=== PATIENT | female | born 1965 | race Hispanic/Latino ===

== ENCOUNTER 2022-06-20 04:32 | Inpatient (IN) | payer OTHER, SELFPAY ==
[2022-06-20] MEDS ORDERED: TETANUS, DIPHTHERIA TOX,ADULT (TDVAX) 0.5 ML VIAL IM ONE (05:09)
[2022-06-20] MEDS ORDERED: Ondansetron PF 4 MG/2 ML Vial IVP PRN (05:09)
[2022-06-20] MEDS ORDERED: Sodium Chloride 0.9% 1,000 ML IV SCH (05:15)
[2022-06-20 05:22] VITALS: BMI 44.0
[2022-06-20] MEDS: Acetaminophen 500 MG TAB PO SCH ×3 (05:59→18:03)
[2022-06-20] MEDS: traMADol HCl 50 MG TAB PO SCH ×3 (06:00→18:03)
[2022-06-20 06:01] LABS: #Monocytes 0.3 thou/uL (0.11-0.59); %Basophils 0.1 % (0.0-1.0); %Eosinophils 0.2 % (0.0-10.0); %Neutrophils 83.7 % (42.0-75.0); Hemoglobin 11.4 g/dL (12.0-16.0); Mean Corpuscular HGB CONC 32.3 g/dL (32.0-36.0); Mean Corpuscular Hemoglobin 29.3 pg (27.0-31.0); Mean Corpuscular Volume 90.6 fl (78.0-98.0); Mean Platelet Volume 7.5 fL (7.4-10.4); Platelet Count 201 10x3/uL (130-400); RBC Distribution Width 12.2 % (11.5-14.5); White Blood Cell (WBC) Count 8.3 10x3/uL (4.8-10.8)
[2022-06-20 06:23] LABS: Anion Gap 13 mmol/L (10-20); BUN (Urea Nitrogen) 22 mg/dL (9.8-20.1); Calc. Creatinine Clearance 140 mL/min (70-130); Calcium 9.1 mg/dL (7.8-10.44); Carbon Dioxide 21 mmol/L (22-29); Chloride 104 mmol/L (98-107); Estimated GFR 85; Glucose 132 mg/dL (70-105); Magnesium 2.1 mg/dL (1.6-2.6); Phosphorus 3.8 mg/dL (2.3-4.7); Potassium 3.9 mmol/L (3.5-5.1); Sodium 134 mmol/L (136-145)
[2022-06-20] MEDS: Senokot S 8.6-50 MG TAB PO SCH ×2 (08:55→21:18)
[2022-06-20] MEDS: Famotidine 20 MG TAB PO SCH ×2 (08:55→21:18)
[2022-06-20] MEDS: Polyethylene Glycol 3350 17 GM Packet PO SCH (08:56)
[2022-06-20] MEDS: traMADol HCl 50 MG TAB PO PRN ×2 (09:00→21:19)
[2022-06-20] MEDS ORDERED: PARoxetine CR 12.5 MG TAB PO SCH (09:15)
[2022-06-20] MEDS ORDERED: Levothyroxine Sodium 75 MCG TAB PO SCH (09:15)
[2022-06-20] MEDS: Bupropion 150 MG XL TAB PO SCH (09:55)
[2022-06-20] MEDS: Cyclobenzaprine 10 MG TAB PO PRN (14:45)
[2022-06-20] MEDS: Rosuvastatin 20 MG TAB PO SCH (21:18)
[2022-06-20] MEDS: Ziprasidone 60 MG CAP PO SCH (21:19)
[2022-06-20] MEDS: Sodium Chloride 0.9% 1,000 ML IV SCH (23:00)
[2022-06-21] MEDS: traMADol HCl 50 MG TAB PO SCH ×5 (00:46→23:39)
[2022-06-21] MEDS: Acetaminophen 500 MG TAB PO SCH ×5 (00:46→23:40)
[2022-06-21] MEDS: Sodium Chloride 0.9% 1,000 ML IV SCH ×2 (03:00→14:10)
[2022-06-21] MEDS: Levothyroxine Sodium 75 MCG TAB PO SCH (05:20)
[2022-06-21 06:07] LABS: #Eosinphils 0.1 thou/uL (0.0-0.7); #Lymphocytes 1.6 thou/uL (1.20-3.40); #Monocytes 0.3 thou/uL (0.11-0.59); #Neutrophils 2.5 thou/uL (1.40-6.50); %Basophils 0.1 % (0.0-1.0); %Eosinophils 2.6 % (0.0-10.0); %Lymphocytes 34.7 % (21.0-51.0); %Monocytes 6.8 % (0.0-10.0); %Neutrophils 55.8 % (42.0-75.0); Hemoglobin 10.4 g/dL (12.0-16.0); Mean Corpuscular HGB CONC 32.2 g/dL (32.0-36.0); Mean Platelet Volume 7.4 fL (7.4-10.4); Platelet Count 171 10x3/uL (130-400); RBC Distribution Width 12.3 % (11.5-14.5); Red Blood Cell (RBC) Count 3.45 mill/uL (4.20-5.40); White Blood Cell (WBC) Count 4.5 10x3/uL (4.8-10.8)
[2022-06-21 06:14] LABS: INR-International Normal Ratio 1.1; PTT 35.7 sec (22.9-36.1); Prothrombin Time 14.6 sec (12.0-14.7)
[2022-06-21 06:24] LABS: Anion Gap 10 mmol/L (10-20); BUN (Urea Nitrogen) 20 mg/dL (9.8-20.1); Calc. Creatinine Clearance 145 mL/min (70-130); Calcium 8.4 mg/dL (7.8-10.44); Carbon Dioxide 23 mmol/L (22-29); Chloride 108 mmol/L (98-107); Estimated GFR 89; Glucose 102 mg/dL (70-105); Sodium 137 mmol/L (136-145)
[2022-06-21] MEDS: Bupropion 150 MG XL TAB PO SCH (08:55)
[2022-06-21] MEDS: Cyclobenzaprine 10 MG TAB PO PRN ×2 (08:55→18:16)
[2022-06-21] MEDS: PARoxetine 20 MG TAB PO SCH (08:56)
[2022-06-21] MEDS: Senokot S 8.6-50 MG TAB PO SCH ×2 (08:56→20:24)
[2022-06-21] MEDS: Famotidine 20 MG TAB PO SCH ×2 (08:56→20:23)
[2022-06-21] MEDS: Polyethylene Glycol 3350 17 GM Packet PO SCH (08:59)
[2022-06-21] MEDS ORDERED: PARoxetine CR 12.5 MG TAB PO SCH (09:00)
[2022-06-21] MEDS ORDERED: Clindamycin/D5W 900 mg/50 ml Premix Bag ONE (10:26)
[2022-06-21] MEDS ORDERED: fentaNYL PF 100 MCG/2 ML SYRINGE ONE (11:19)
[2022-06-21] MEDS ORDERED: SUGAMMADEX SODIUM 200 MG/2 ML VIAL ONE (11:19)
[2022-06-21] MEDS ORDERED: PROPOFOL 200 MG/20 ML VIAL ONE (11:39)
[2022-06-21] MEDS ORDERED: Ondansetron PF 4 MG/2 ML Vial ONE (11:39)
[2022-06-21] MEDS ORDERED: Promethazine HCl 25 MG/ML VIAL IVPB PRN (12:41)
[2022-06-21] MEDS ORDERED: Promethazine HCl 25 MG/ML VIAL IM PRN (12:41)
[2022-06-21] MEDS ORDERED: Ondansetron HCl/PF 4 MG/2 ML Vial IVP PRN (12:41)
[2022-06-21] MEDS ORDERED: TETANUS, DIPHTHERIA TOX,ADULT (TDVAX) 0.5 ML VIAL IM ONE (13:01)
[2022-06-21] MEDS ORDERED: Morphine 4 MG/ML VIAL SLOW IVP PRN (13:01)
[2022-06-21] MEDS ORDERED: HYDROcodone/Acetaminophen 10/325 mg Tablet PO PRN ×2 (13:01)
[2022-06-21] MEDS ORDERED: FENTANYL 50 MCG/ML 1 ML VIAL ONE ×2 (13:05→13:23)
[2022-06-21] MEDS ORDERED: Communication Order-Pharmacy FS PRN (13:15)
[2022-06-21] MEDS: Clindamycin/D5W 900 MG in Premix Bag 1 BAG IVPB SCH ×2 (14:08→23:39)
[2022-06-21] MEDS: Morphine 4 MG/ML VIAL SLOW IVP PRN ×3 (14:09→20:22)
[2022-06-21] MEDS: Ziprasidone 60 MG CAP PO SCH (20:23)
[2022-06-21] MEDS: Aspirin 81 mg Enteric Coated Tablet PO SCH (20:23)
[2022-06-21] MEDS: traMADol HCl 50 MG TAB PO PRN (20:24)
[2022-06-21] MEDS: Rosuvastatin 20 MG TAB PO SCH (20:24)
[2022-06-22] MEDS: Levothyroxine Sodium 75 MCG TAB PO SCH (05:17)
[2022-06-22] MEDS: traMADol HCl 50 MG TAB PO SCH ×5 (05:19→23:38)
[2022-06-22] MEDS: Acetaminophen 500 MG TAB PO SCH (05:19)
[2022-06-22 06:21] LABS: #Eosinphils 0.1 thou/uL (0.0-0.7); #Lymphocytes 1.4 thou/uL (1.20-3.40); #Monocytes 0.4 thou/uL (0.11-0.59); #Neutrophils 2.8 thou/uL (1.40-6.50); %Basophils 0.3 % (0.0-1.0); %Eosinophils 1.3 % (0.0-10.0); %Monocytes 8.8 % (0.0-10.0); %Neutrophils 60.6 % (42.0-75.0); Hemoglobin 9.1 g/dL (12.0-16.0); Mean Corpuscular HGB CONC 32.1 g/dL (32.0-36.0); Mean Corpuscular Volume 93.4 fl (78.0-98.0); Mean Platelet Volume 7.3 fL (7.4-10.4); Platelet Count 166 10x3/uL (130-400); RBC Distribution Width 12.2 % (11.5-14.5); Red Blood Cell (RBC) Count 3.02 mill/uL (4.20-5.40); White Blood Cell (WBC) Count 4.7 10x3/uL (4.8-10.8)
[2022-06-22 06:51] LABS: Anion Gap 12 mmol/L (10-20); BUN (Urea Nitrogen) 11 mg/dL (9.8-20.1); Calc. Creatinine Clearance 157 mL/min (70-130); Calcium 7.6 mg/dL (7.8-10.44); Carbon Dioxide 22 mmol/L (22-29); Chloride 105 mmol/L (98-107); Estimated GFR 98; Glucose 109 mg/dL (70-105); Magnesium 1.7 mg/dL (1.6-2.6); Phosphorus 2.8 mg/dL (2.3-4.7); Sodium 135 mmol/L (136-145)
[2022-06-22] MEDS: PARoxetine 20 MG TAB PO SCH (09:34)
[2022-06-22] MEDS: Aspirin 81 mg Enteric Coated Tablet PO SCH (09:34)
[2022-06-22] MEDS: Bupropion 150 MG XL TAB PO SCH (09:35)
[2022-06-22] MEDS: traMADol HCl 50 MG TAB PO PRN (09:35)
[2022-06-22] MEDS: Famotidine 20 MG TAB PO SCH ×2 (09:35→20:44)
[2022-06-22] MEDS: Senokot S 8.6-50 MG TAB PO SCH ×2 (09:35→20:44)
[2022-06-22] MEDS: Polyethylene Glycol 3350 17 GM Packet PO SCH (09:36)
[2022-06-22] MEDS ORDERED: Morphine 2 MG/ML VIAL SLOW IVP PRN (10:45)
[2022-06-22] MEDS ORDERED: traMADol HCl 50 MG TAB PO PRN (10:45)
[2022-06-22] MEDS ORDERED: Enoxaparin Sodium 30 MG/0.3 ML SYRINGE SC SCH (11:00)
[2022-06-22] MEDS ORDERED: Morphine 4 MG/ML VIAL SLOW IVP PRN (11:15)
[2022-06-22] MEDS: Acetaminophen/Codeine 30-300mg Tablet PO SCH ×3 (11:17→23:39)
[2022-06-22] MEDS: Ibuprofen 200 MG TAB PO SCH ×2 (13:38→19:05)
[2022-06-22] MEDS: Magnesium 2 GM/50 ML(in water) 2 GM in Premix Bag 1 BAG IVPB SCH ×2 (14:00→17:28)
[2022-06-22] MEDS: Ziprasidone 60 MG CAP PO SCH (20:44)
[2022-06-22] MEDS: Cyclobenzaprine 10 MG TAB PO PRN (20:44)
[2022-06-22] MEDS: Rosuvastatin 20 MG TAB PO SCH (20:44)
[2022-06-22] MEDS: Enoxaparin Sodium 30 MG/0.3 ML SYRINGE SC SCH (20:45)
[2022-06-23] MEDS: Ibuprofen 200 MG TAB PO SCH (04:06)
[2022-06-23] MEDS: Levothyroxine Sodium 75 MCG TAB PO SCH (05:24)
[2022-06-23] MEDS: traMADol HCl 50 MG TAB PO SCH ×3 (05:25→21:36)
[2022-06-23] MEDS: Acetaminophen/Codeine 30-300mg Tablet PO SCH ×3 (05:25→17:50)
[2022-06-23 05:56] LABS: #Eosinphils 0.1 thou/uL (0.0-0.7); #Lymphocytes 1.4 thou/uL (1.20-3.40); #Monocytes 0.3 thou/uL (0.11-0.59); #Neutrophils 3.2 thou/uL (1.40-6.50); %Basophils 0.6 % (0.0-1.0); %Eosinophils 2.9 % (0.0-10.0); %Lymphocytes 27.4 % (21.0-51.0); %Monocytes 6.3 % (0.0-10.0); %Neutrophils 62.8 % (42.0-75.0); Hemoglobin 9.3 g/dL (12.0-16.0); Mean Corpuscular HGB CONC 32.7 g/dL (32.0-36.0); Mean Corpuscular Hemoglobin 30.4 pg (27.0-31.0); Mean Corpuscular Volume 93.1 fl (78.0-98.0); Mean Platelet Volume 6.9 fL (7.4-10.4); Platelet Count 154 10x3/uL (130-400); Red Blood Cell (RBC) Count 3.04 mill/uL (4.20-5.40)
[2022-06-23 07:18] LABS: Anion Gap 11 mmol/L (10-20); BUN (Urea Nitrogen) 9 mg/dL (9.8-20.1); Calc. Creatinine Clearance 166 mL/min (70-130); Calcium 7.9 mg/dL (7.8-10.44); Carbon Dioxide 24 mmol/L (22-29); Chloride 104 mmol/L (98-107); Estimated GFR 103; Glucose 107 mg/dL (70-105); Magnesium 2.4 mg/dL (1.6-2.6); Phosphorus 3.4 mg/dL (2.3-4.7); Potassium 3.9 mmol/L (3.5-5.1); Sodium 135 mmol/L (136-145)
[2022-06-23] MEDS ORDERED: PHOS-NAK 1 PKT PACK PO SCH (08:00)
[2022-06-23] MEDS: Bupropion 150 MG XL TAB PO SCH (08:57)
[2022-06-23] MEDS: Polyethylene Glycol 3350 17 GM Packet PO SCH (08:57)
[2022-06-23] MEDS: Ibuprofen 200 MG TAB PO PRN (08:58)
[2022-06-23] MEDS: PARoxetine 20 MG TAB PO SCH (08:58)
[2022-06-23] MEDS: Senokot S 8.6-50 MG TAB PO SCH ×2 (08:58→21:36)
[2022-06-23] MEDS: Famotidine 20 MG TAB PO SCH ×2 (08:58→21:36)
[2022-06-23] MEDS: Enoxaparin Sodium 30 MG/0.3 ML SYRINGE SC SCH ×2 (08:59→21:38)
[2022-06-23] MEDS ORDERED: FLU VACC QS2022-23(6MOS UP)/PF 60 MCG/0.5 ML SYRINGE IM ONE (09:00)
[2022-06-23] MEDS: Cyclobenzaprine 10 MG TAB PO PRN ×2 (09:01→21:37)
[2022-06-23] MEDS: Ziprasidone 60 MG CAP PO SCH (21:37)
[2022-06-23] MEDS: Rosuvastatin 20 MG TAB PO SCH (21:37)
[2022-06-24] MEDS: Acetaminophen/Codeine 30-300mg Tablet PO SCH ×4 (00:40→18:25)
[2022-06-24] MEDS: traMADol HCl 50 MG TAB PO SCH ×4 (02:29→21:50)
[2022-06-24] MEDS: Levothyroxine Sodium 75 MCG TAB PO SCH (05:26)
[2022-06-24] MEDS: Famotidine 20 MG TAB PO SCH ×2 (08:49→21:50)
[2022-06-24] MEDS: Senokot S 8.6-50 MG TAB PO SCH ×2 (08:49→21:48)
[2022-06-24] MEDS: PARoxetine 20 MG TAB PO SCH (08:49)
[2022-06-24] MEDS: Enoxaparin Sodium 30 MG/0.3 ML SYRINGE SC SCH ×2 (08:49→21:47)
[2022-06-24] MEDS: Bupropion 150 MG XL TAB PO SCH (08:49)
[2022-06-24] MEDS: Polyethylene Glycol 3350 17 GM Packet PO SCH (08:50)
[2022-06-24] MEDS: Ibuprofen 200 MG TAB PO PRN (14:09)
[2022-06-24] MEDS: Rosuvastatin 20 MG TAB PO SCH (21:49)
[2022-06-24] MEDS: Ziprasidone 60 MG CAP PO SCH (21:52)
[2022-06-25] MEDS: Acetaminophen/Codeine 30-300mg Tablet PO SCH ×4 (00:13→17:35)
[2022-06-25] MEDS: traMADol HCl 50 MG TAB PO SCH ×3 (03:03→15:36)
[2022-06-25] MEDS: Levothyroxine Sodium 75 MCG TAB PO SCH (05:38)
[2022-06-25] MEDS ORDERED: Lisinopril 10 MG TAB PO SCH (09:00)
[2022-06-25] MEDS: Senokot S 8.6-50 MG TAB PO SCH (09:18)
[2022-06-25] MEDS: Bupropion 150 MG XL TAB PO SCH (09:18)
[2022-06-25] MEDS: PARoxetine 20 MG TAB PO SCH (09:18)
[2022-06-25] MEDS: Famotidine 20 MG TAB PO SCH (09:18)
[2022-06-25] MEDS: Enoxaparin Sodium 30 MG/0.3 ML SYRINGE SC SCH (09:19)
[2022-06-25] MEDS: Polyethylene Glycol 3350 17 GM Packet PO SCH (09:19)
[2022-06-25] MEDS: Cyclobenzaprine 10 MG TAB PO PRN (19:28)
[2022-06-25 21:39] VITALS: BP 124/84; TEMP 98
== END 2022-06-25 19:40 | DRG 481 ==
LOC: SURG B 05:05
PROVIDERS: ADMIT Surgery; ATTEND Surgery
PROC: 0QS604Z Reposition Right Upper Femur with Internal Fixation Device, Open Approach (ICD-10-PCS; principal; 2022-06-21)
DX: S72.041A Displaced fracture of base of neck of right femur, initial encounter for closed fracture (principal); Z68.41 Body mass index [BMI] 40.0-44.9, adult; Z20.822 Contact with and (suspected) exposure to COVID-19; I10 Essential (primary) hypertension; E78.5 Hyperlipidemia, unspecified; E03.9 Hypothyroidism, unspecified; F32.A Depression, unspecified; W19.XXXA Unspecified fall, initial encounter; E66.9 Obesity, unspecified; Z88.0 Allergy status to penicillin; Z79.890 Hormone replacement therapy; Z79.899 Other long term (current) drug therapy; Z98.890 Other specified postprocedural states
CPT/HCPCS: 36415; 80048; 83735; 84100; 85025; 85610; 85730; 86850; 86900; 86901; 90714; C1713; J1650; J2270; J2405; J2704; J3010; J3475; J3490; J7050